=== PATIENT | female | born 1970 | race Caucasian/White ===

== ENCOUNTER 2017-04-15 12:24 | Emergency (ER) | payer MEDICARE, OTHER ==
[~2017-04-15] VITALS: Ht 165.1 cm; Wt 68.0 kg
[~2017-04-15 12:24] MED LIST: ACETAMINOPHEN500 MG PO; ALBU.083IS IH; ALBU90OI; ALBU90OI INH; ALBU90OI6 INH; AMIT50 PO; AMPDEX10 PO; AMPDEX15CR; BECL80OI INH; BENZ100A PO; BUPR100; CEFT400 PO; CIPR500 PO; CLIN300 PO; CLON.5; CLON.5 PO; CYCL10; CYCL10 PO; Cipro500 MG PO; DEXL60CA3 PO; DIPH50; DIPH50 PO; DOC250 PO; DOXY100 PO; EPIN.3I IM; ERYT250 PO; ERYT333ERA PO; ESCI10; FLUSAL2505 IH; Flagyl500 MG PO; GABA100 PO; GABA300T24 PO; HYDACE5 PO; HYDACE7.5 PO; IBUHYD PO; IBUP400 PO; IBUP800 PO; IPRAOI; ISODIN20; ISODIN20 PO; LAMO100; LEVFLO500; LEVFLO500 PO; LOXA10; METR500; MIRT15 PO; NAPR220 PO; NITR.4SL; NITR.4SL SL; NITR100CA PO; OXYACE5T PO; OXYC5; OXYC5 PO; PERP8 PO; PRED20 PO; PROC10 PO; PROM25 PO; QUET300; RISP1 PO; RISP2; RXOXYACE PO; RXTRAM50 PO; STEROID INHALER; SULTRIDS PO; TOBR.3OPSO OP; TRAM50 PO; TRAZ50; Ultram50 MG PO; WELLBUTRIN; ZIPR20 PO
[2017-04-15 14:45] LABS: BASOPHILS ABSOLUTE AUTO 0.02 K/mm3 (0.00-0.23); BASOPHILS PERCENT AUTO 0 % (0-2); EOSINOPHILS ABSOLUTE AUTO 0.01 K/mm3 (0.00-0.68); EOSINOPHILS PERCENT AUTO 0 % (0-6); Hematocrit 45.6 % (33.0-51.0); Hemoglobin 15.6 g/dL (11.5-16.0); IMMATURE GRAN ABSOLUTE AUTO 0.03 K/mm3 (0.00-0.10); IMMATURE GRAN PERCENT AUTO 0 % (0-1); LYMPHOCYTES ABSOLUTE AUTO 0.24 K/mm3 (0.84-5.20); LYMPHOCYTES PERCENT AUTO 2 % (21-46); MONOCYTES ABSOLUTE AUTO 0.41 K/mm3 (0.16-1.47); MONOCYTES PERCENT AUTO 4 % (4-13); Mean Corpuscular HGB 31.8 pg (26.0-34.0); Mean Corpuscular HGB Conc 34.2 g/dL (31.5-36.5); Mean Corpuscular Volume 93 fL (80-100); Mean Platelet Volume 9.4 fL (9.1-12.4); NEUTROPHILS ABSOLUTE AUTO 10.42 K/mm3 (1.96-9.15); NEUTROPHILS PERCENT AUTO 94 % (41-73); Platelet Count 307 K/mm3 (150-400); RDW Coefficient Variation 12.8 % (11.7-14.2); RDW Standard Deviation 43.3 fL (35.1-46.3); Red Blood Cell Count 4.91 M/mm3 (3.80-5.20); White Blood Cell Count 11.13 K/mm3 (4.00-11.30)
[2017-04-15 15:03] LABS: Alanine Aminotransfer (ALT/SGP 35 U/L (12-78); Albumin, Blood 3.8 g/dL (3.4-5.0); Albumin/Globulin Ratio 1.1 (0.8-1.8); Alk Phos 121 U/L (50-136); Anion Gap 8 mmol/L (6-16); Aspartate Aminotrans (AST/SGOT 24 U/L (12-37); Bilirubin, Total 0.6 mg/dL (0.1-1.0); Blood Urea Nitrogen 19 mg/dL (8-24); Bun/Creatinine Ratio 28.5 (12.0-20.0); CO2, Blood 26 mmol/L (21-32); Calcium, Blood 8.3 mg/dL (8.5-10.1); Chloride, Blood 102 mmol/L (98-108); Creatinine, Blood 0.67 mg/dL (0.40-1.00); Globulin, Blood 3.5 g/dL (2.2-4.0); Glomerular Filtration Rate >60 (60-); Glucose, Blood 110 mg/dL (70-99); Potassium, Blood 3.9 mmol/L (3.5-5.5); Sodium, Blood 136 mmol/L (136-145); Total Protein, Blood 7.3 g/dL (6.4-8.2)
[2017-04-15] MEDS ORDERED: NITR.6SL (15:30)
[2017-04-15] MEDS ORDERED: PERP2 (15:30)
[2017-04-15 16:56] LABS: Troponin I <0.015 ng/mL (0.000-0.040)
[2017-04-15] MEDS ORDERED: Zofran Odt4 MG SL (18:12)
== END 2017-04-15 18:30 | disposition home or self-care (01) ==
LOC: ER 12:24
PROVIDERS: Internal Medicine
DX: R11.2 Nausea with vomiting, unspecified (principal); F17.200 Nicotine dependence, unspecified, uncomplicated; Z88.0 Allergy status to penicillin; Z88.1 Allergy status to other antibiotic agents; Z79.899 Other long term (current) drug therapy; Z90.49 Acquired absence of other specified parts of digestive tract
CPT/HCPCS: 36415; 71020; 80053; 83690; 84484; 85025; 93005; 93010; 99283; J1885; J2405; J7030

== ENCOUNTER → 2017-07-24 | Outpatient (CLI) | payer MEDICARE, OTHER ==
[~2017-07-24] MED LIST changes: +NITR.6SL; +PERP2; +Zofran Odt4 MG SL
== END ==
LOC: LAB 15:15 → LAB SHORT 15:15
DX: N39.0 Urinary tract infection, site not specified (principal)
CPT/HCPCS: 87077; 87086; 87186

== ENCOUNTER 2017-08-01 16:41 | Emergency (ER) | payer MEDICARE, OTHER ==
[~2017-08-01] VITALS: Ht 160 cm; Wt 65.8 kg
== END 2017-08-01 18:47 | disposition left against medical advice (07) ==
LOC: ER 16:41
DX: Z53.21 Procedure and treatment not carried out due to patient leaving prior to being seen by health care provider (principal)
CPT/HCPCS: 99281

== ENCOUNTER 2017-08-17 09:05 | Emergency (ER) | payer MEDICARE, OTHER ==
[~2017-08-17] VITALS: Ht 160 cm; Wt 68.0 kg
[2017-08-17] MEDS ORDERED: DIPH50 PO (09:42)
[2017-08-17] MEDS ORDERED: Robaxin500 MG PO (11:06)
[2017-08-17] MEDS ORDERED: IBUP800 PO (11:06)
== END 2017-08-17 11:15 | disposition home or self-care (01) ==
LOC: ER 09:05
DX: M47.892 Other spondylosis, cervical region (principal); M50.30 Other cervical disc degeneration, unspecified cervical region; M25.531 Pain in right wrist; F17.210 Nicotine dependence, cigarettes, uncomplicated; Z88.0 Allergy status to penicillin; Z88.1 Allergy status to other antibiotic agents; Z79.899 Other long term (current) drug therapy
CPT/HCPCS: 72040; 73110

== ENCOUNTER 2017-08-23 01:24 | Emergency (ER) | payer MEDICARE, OTHER ==
[~2017-08-23] VITALS: Ht 165.1 cm; Wt 68.0 kg
[~2017-08-23 01:24] MED LIST changes: +Robaxin500 MG PO
[2017-08-23] MEDS ORDERED: Bactrim Ds Tab1 EACH PO (02:49)
[2017-08-23] MEDS ORDERED: IBUP600 PO (02:50)
== END 2017-08-23 03:41 | disposition home or self-care (01) ==
LOC: ER 01:24
DX: S61.213A Laceration without foreign body of left middle finger without damage to nail, initial encounter (principal); Z88.0 Allergy status to penicillin; Z88.1 Allergy status to other antibiotic agents; Z79.899 Other long term (current) drug therapy; F17.210 Nicotine dependence, cigarettes, uncomplicated; W25.XXXA Contact with sharp glass, initial encounter
CPT/HCPCS: 90471; 90714; 99283

== ENCOUNTER 2017-08-28 03:29 | Emergency (ER) | payer MEDICARE, OTHER ==
[~2017-08-28] VITALS: Ht 165.1 cm; Wt 68.0 kg
[~2017-08-28 03:29] MED LIST changes: +Bactrim Ds Tab1 EACH PO; +IBUP600 PO
[2017-08-28] MEDS ORDERED: Bactrim Ds Tab1 EACH PO (04:52)
== END 2017-08-28 05:03 | disposition home or self-care (01) ==
LOC: ER 03:29
DX: S91.311A Laceration without foreign body, right foot, initial encounter (principal); S61.303A Unspecified open wound of left middle finger with damage to nail, initial encounter; F17.210 Nicotine dependence, cigarettes, uncomplicated; Z88.0 Allergy status to penicillin; Z88.1 Allergy status to other antibiotic agents; Z79.899 Other long term (current) drug therapy; W25.XXXA Contact with sharp glass, initial encounter
CPT/HCPCS: 73630

== ENCOUNTER → 2017-09-10 | Outpatient (CLI) | payer MEDICARE, OTHER | END | disposition home or self-care (01) | LOC: LAB SHORT 11:52 → LAB EV 11:52 | DX: S91.311A Laceration without foreign body, right foot, initial encounter (principal) | CPT/HCPCS: 87070; 87075; 87077; 87186; 87205 ==

== ENCOUNTER → 2017-09-26 | Outpatient (CLI) | payer MEDICARE, OTHER | LOC: LAB 12:45 → LAB SHORT 12:45 | DX: N39.0 Urinary tract infection, site not specified (principal) | CPT/HCPCS: 87077; 87086; 87186 ==

== ENCOUNTER 2018-04-17 18:11 | Emergency (ER) | payer MEDICARE, OTHER ==
[~2018-04-17] VITALS: Ht 162.6 cm; Wt 61.2 kg
== END 2018-04-17 20:57 | disposition home or self-care (01) ==
LOC: ER 18:11
DX: M25.511 Pain in right shoulder (principal); M79.641 Pain in right hand; Z88.0 Allergy status to penicillin; Z88.8 Allergy status to other drugs, medicaments and biological substances; Z88.5 Allergy status to narcotic agent; Z88.1 Allergy status to other antibiotic agents; Z79.899 Other long term (current) drug therapy; F17.210 Nicotine dependence, cigarettes, uncomplicated; W19.XXXA Unspecified fall, initial encounter
CPT/HCPCS: 29125; 73030; 73130; 99283-25

== ENCOUNTER 2018-04-24 22:06 | Emergency (ER) | payer MEDICARE, OTHER ==
[~2018-04-24] VITALS: Ht 165.1 cm; Wt 56.7 kg
[2018-04-24 23:02] LABS: BASOPHILS ABSOLUTE AUTO 0.03 K/mm3 (0.00-0.23); BASOPHILS PERCENT AUTO 0 % (0-2); EOSINOPHILS ABSOLUTE AUTO 0.05 K/mm3 (0.00-0.68); EOSINOPHILS PERCENT AUTO 1 % (0-6); Hematocrit 36.7 % (33.0-51.0); Hemoglobin 12.1 g/dL (11.5-16.0); IMMATURE GRAN ABSOLUTE AUTO 0.02 K/mm3 (0.00-0.10); IMMATURE GRAN PERCENT AUTO 0 % (0-1); LYMPHOCYTES PERCENT AUTO 21 % (21-46); MONOCYTES ABSOLUTE AUTO 0.65 K/mm3 (0.16-1.47); MONOCYTES PERCENT AUTO 8 % (4-13); Mean Corpuscular HGB 31.2 pg (26.0-34.0); Mean Corpuscular Volume 95 fL (80-100); Mean Platelet Volume 9.2 fL (9.1-12.4); NEUTROPHILS PERCENT AUTO 70 % (41-73); Platelet Count 320 K/mm3 (150-400); RDW Standard Deviation 45.1 fL (35.1-46.3); Red Blood Cell Count 3.88 M/mm3 (3.80-5.20); White Blood Cell Count 8.55 K/mm3 (4.00-11.30)
[2018-04-24 23:25] LABS: Alanine Aminotransfer (ALT/SGP 41 U/L (12-78); Albumin, Blood 3.6 g/dL (3.4-5.0); Albumin/Globulin Ratio 0.9 (0.8-1.8); Alk Phos 127 U/L (50-136); Anion Gap 6 mmol/L (6-16); Aspartate Aminotrans (AST/SGOT 33 U/L (12-37); Bilirubin, Total 0.3 mg/dL (0.1-1.0); Blood Urea Nitrogen 15 mg/dL (8-24); CO2, Blood 28 mmol/L (21-32); Calcium, Blood 8.9 mg/dL (8.5-10.1); Chloride, Blood 104 mmol/L (98-108); Creatinine, Blood 0.75 mg/dL (0.40-1.00); Globulin, Blood 4.1 g/dL (2.2-4.0); Glomerular Filtration Rate >60 (60-); Glucose, Blood 94 mg/dL (70-99); Potassium, Blood 3.6 mmol/L (3.5-5.5); Sodium, Blood 138 mmol/L (136-145); Total Protein, Blood 7.7 g/dL (6.4-8.2); Troponin I <0.015 ng/mL (0.000-0.040)
[2018-04-24] MEDS ORDERED: ALBU3IS (23:36)
[2018-04-24] MEDS ORDERED: ALBU3IS INH (23:37)
[2018-04-24] MEDS ORDERED: Ultram50 MG PO (23:46)
[2018-04-24] MEDS ORDERED: Zithromax250 MG PO (23:46)
== END 2018-04-25 00:12 | disposition home or self-care (01) ==
LOC: ER 22:06
PROVIDERS: Emergency Medicine
DX: J18.1 Lobar pneumonia, unspecified organism (principal); Z88.0 Allergy status to penicillin; Z88.8 Allergy status to other drugs, medicaments and biological substances; Z88.5 Allergy status to narcotic agent; Z79.899 Other long term (current) drug therapy; Z88.1 Allergy status to other antibiotic agents; J44.9 Chronic obstructive pulmonary disease, unspecified
CPT/HCPCS: 71046; 80053; 83880; 84484; 85025; 93005; 93010; 96374; 99284-25; J1885

== ENCOUNTER 2018-12-11 19:02 | Emergency (ER) | payer MEDICARE, OTHER ==
[~2018-12-11] VITALS: Ht 165.1 cm; Wt 65.8 kg
[~2018-12-11 19:02] MED LIST changes: +ALBU3IS; +ALBU3IS INH; +Zithromax250 MG PO
[2018-12-11] MEDS ORDERED: Monodox100 MG PO (19:43)
== END 2018-12-11 19:50 | disposition home or self-care (01) ==
LOC: ER 19:02
DX: L02.414 Cutaneous abscess of left upper limb (principal); Z88.0 Allergy status to penicillin; Z88.8 Allergy status to other drugs, medicaments and biological substances; Z88.5 Allergy status to narcotic agent; Z88.1 Allergy status to other antibiotic agents; Z79.899 Other long term (current) drug therapy; J44.9 Chronic obstructive pulmonary disease, unspecified; F17.210 Nicotine dependence, cigarettes, uncomplicated
CPT/HCPCS: 99283

== ENCOUNTER 2019-01-06 10:52 | Emergency (ER) | payer MEDICARE, OTHER ==
[~2019-01-06] VITALS: Ht 162.6 cm; Wt 56.7 kg
[~2019-01-06 10:52] MED LIST changes: +Monodox100 MG PO
[2019-01-06 11:28] LABS: BASOPHILS ABSOLUTE AUTO 0.06 K/mm3 (0.00-0.23); BASOPHILS PERCENT AUTO 0 % (0-2); EOSINOPHILS PERCENT AUTO 1 % (0-6); Hematocrit 48.6 % (33.0-51.0); Hemoglobin 16.3 g/dL (11.5-16.0); IMMATURE GRAN ABSOLUTE AUTO 0.04 K/mm3 (0.00-0.10); IMMATURE GRAN PERCENT AUTO 0 % (0-1); LYMPHOCYTES ABSOLUTE AUTO 1.38 K/mm3 (0.84-5.20); LYMPHOCYTES PERCENT AUTO 10 % (21-46); MONOCYTES ABSOLUTE AUTO 0.67 K/mm3 (0.16-1.47); MONOCYTES PERCENT AUTO 5 % (4-13); Mean Corpuscular HGB 31.5 pg (26.0-34.0); Mean Corpuscular HGB Conc 33.5 g/dL (31.5-36.5); Mean Corpuscular Volume 94 fL (80-100); Mean Platelet Volume 9.3 fL (9.1-12.4); NEUTROPHILS ABSOLUTE AUTO 11.09 K/mm3 (1.96-9.15); NEUTROPHILS PERCENT AUTO 83 % (41-73); Platelet Count 321 K/mm3 (150-400); RDW Coefficient Variation 12.5 % (11.7-14.2); RDW Standard Deviation 43.3 fL (35.1-46.3); Red Blood Cell Count 5.17 M/mm3 (3.80-5.20); White Blood Cell Count 13.34 K/mm3 (4.00-11.30)
[2019-01-06 11:49] LABS: Alanine Aminotransfer (ALT/SGP 211 U/L (12-78); Albumin, Blood 4.5 g/dL (3.4-5.0); Alk Phos 155 U/L (50-136); Anion Gap 5 mmol/L (6-16); Aspartate Aminotrans (AST/SGOT 214 U/L (12-37); Bilirubin, Total 0.3 mg/dL (0.1-1.0); Blood Urea Nitrogen 23 mg/dL (8-24); Bun/Creatinine Ratio 32.3 (12.0-20.0); CO2, Blood 26 mmol/L (21-32); Calcium, Blood 9.2 mg/dL (8.5-10.1); Chloride, Blood 107 mmol/L (98-108); Creatinine, Blood 0.71 mg/dL (0.40-1.00); Globulin, Blood 4.4 g/dL (2.2-4.0); Glomerular Filtration Rate >60 (60-); Glucose, Blood 111 mg/dL (70-99); Potassium, Blood 4.3 mmol/L (3.5-5.5); Sodium, Blood 138 mmol/L (136-145); Total Protein, Blood 8.9 g/dL (6.4-8.2)
[2019-01-06 12:32] LABS: Source, Urine Clean Catch
[2019-01-06 12:37] LABS: Bilirubin, Urine Neg (Neg); Blood, Urine 2+ (Neg); Glucose Qualitative, Urine Neg (Neg); Ketones, Urine Neg (Neg); Leukocyte Esterase, Urine 1+ (Neg); Nitrite, Urine Pos (Neg); Protein, Urine Neg (Neg); Specific Gravity, Urine 1.025 (1.003-1.022); Urobilinogen, Urine NORM (Normal)
[2019-01-06 12:46] LABS: Appearance, Urine Clear (Clear); Color, Urine Yellow (P-Yellow)
[2019-01-06 12:48] LABS: Bacteria Many /hpf; Squamous Epithelial Cells Few /hpf (Few)
[2019-01-06 12:56] LABS: U Amphetamine Screen DETECTED; U Barbituate Screen Not Detected; U Benzodiazapine Screen Not Detected; U Buprenorphine Screen Not Detected; U Cannabinoids Screen Not Detected; U Cocaine Screen Not Detected; U Methadone Screen Not Detected; U Methamphetamine Screen DETECTED; U Opiates Screen Not Detected; U Oxycodone Screen Not Detected; U Phencyclidine Screen Not Detected; U Propoxyphene Screen Not Detected
[2019-01-06] MEDS ORDERED: Macrodantin100 MG PO (13:25)
== END 2019-01-06 13:31 | disposition home or self-care (01) ==
LOC: ER 10:52
PROVIDERS: Emergency Medicine; Physician Assistant
DX: N39.0 Urinary tract infection, site not specified (principal); F15.10 Other stimulant abuse, uncomplicated; F41.9 Anxiety disorder, unspecified; F20.9 Schizophrenia, unspecified; F43.10 Post-traumatic stress disorder, unspecified; D72.829 Elevated white blood cell count, unspecified; J45.909 Unspecified asthma, uncomplicated; J43.9 Emphysema, unspecified; F17.210 Nicotine dependence, cigarettes, uncomplicated; Z86.73 Personal history of transient ischemic attack (TIA), and cerebral infarction without residual deficits; Z88.0 Allergy status to penicillin; Z88.1 Allergy status to other antibiotic agents; Z88.5 Allergy status to narcotic agent; Z79.899 Other long term (current) drug therapy; Z79.891 Long term (current) use of opiate analgesic
CPT/HCPCS: 36415; 76705; 80053; 81001; 83690; 84703; 85025; 87077; 87086; 87186; 96361; 96374; 99284-25; J2405; J7030

== ENCOUNTER 2019-07-11 02:18 | Emergency (ER) | payer MEDICARE, OTHER ==
[~2019-07-11] VITALS: Ht 165.1 cm; Wt 58.1 kg
[~2019-07-11 02:18] MED LIST changes: +Macrodantin100 MG PO
[2019-07-11 03:53] LABS: BASOPHILS ABSOLUTE AUTO 0.04 K/mm3 (0.00-0.23); BASOPHILS PERCENT AUTO 0 % (0-2); EOSINOPHILS PERCENT AUTO 0 % (0-6); Hematocrit 40.2 % (33.0-51.0); Hemoglobin 13.6 g/dL (11.5-16.0); IMMATURE GRAN ABSOLUTE AUTO 0.13 K/mm3 (0.00-0.10); IMMATURE GRAN PERCENT AUTO 1 % (0-1); LYMPHOCYTES ABSOLUTE AUTO 0.55 K/mm3 (0.84-5.20); LYMPHOCYTES PERCENT AUTO 3 % (21-46); MONOCYTES ABSOLUTE AUTO 0.86 K/mm3 (0.16-1.47); MONOCYTES PERCENT AUTO 5 % (4-13); Mean Corpuscular HGB Conc 33.8 g/dL (31.5-36.5); Mean Corpuscular Volume 95 fL (80-100); NEUTROPHILS ABSOLUTE AUTO 15.31 K/mm3 (1.96-9.15); NEUTROPHILS PERCENT AUTO 91 % (41-73); RDW Coefficient Variation 12.5 % (11.7-14.2); RDW Standard Deviation 43.5 fL (35.1-46.3); Red Blood Cell Count 4.25 M/mm3 (3.80-5.20); White Blood Cell Count 16.89 K/mm3 (4.00-11.30)
[2019-07-11 03:56] LABS: Mean Platelet Volume 9.3 fL (9.1-12.4); Platelet Count 269 K/mm3 (150-400)
[2019-07-11 04:04] LABS: Alanine Aminotransfer (ALT/SGP 44 U/L (12-78); Albumin, Blood 3.7 g/dL (3.4-5.0); Albumin/Globulin Ratio 1.1 (0.8-1.8); Alk Phos 107 U/L (50-136); Anion Gap 8 mmol/L (6-16); Aspartate Aminotrans (AST/SGOT 67 U/L (12-37); Bilirubin, Total 0.2 mg/dL (0.1-1.0); Blood Urea Nitrogen 18 mg/dL (8-24); Bun/Creatinine Ratio 23.7 (12.0-20.0); CO2, Blood 25 mmol/L (21-32); Calcium, Blood 8.4 mg/dL (8.5-10.1); Chloride, Blood 105 mmol/L (98-108); Creatinine, Blood 0.76 mg/dL (0.40-1.00); Globulin, Blood 3.3 g/dL (2.2-4.0); Glomerular Filtration Rate >60 (60-); Glucose, Blood 97 mg/dL (70-99); Potassium, Blood 3.6 mmol/L (3.5-5.5); Sodium, Blood 138 mmol/L (136-145)
[2019-07-11 05:23] LABS: Source, Urine Voided
[2019-07-11 05:29] LABS: Bilirubin, Urine Neg (Neg); Blood, Urine 3+ (Neg); Glucose Qualitative, Urine Neg (Neg); Ketones, Urine Neg (Neg); Leukocyte Esterase, Urine 3+ (Neg); Nitrite, Urine Pos (Neg); Protein, Urine 1+ (Neg); Urobilinogen, Urine NORM (Normal)
[2019-07-11 05:52] LABS: Appearance, Urine Hazy (Clear); Bacteria Mod /hpf; Color, Urine Yellow (P-Yellow); Squamous Epithelial Cells Mod /hpf (Few)
[2019-07-11] MEDS ORDERED: Bactrim Ds Tab1 EACH PO (06:09)
[2019-07-11] MEDS ORDERED: IBUP600 PO (06:09)
== END 2019-07-11 07:00 | disposition home or self-care (01) ==
LOC: ER 02:18
PROVIDERS: Emergency Medicine
DX: J18.9 Pneumonia, unspecified organism (principal); N39.0 Urinary tract infection, site not specified; F41.9 Anxiety disorder, unspecified; J43.9 Emphysema, unspecified; F17.210 Nicotine dependence, cigarettes, uncomplicated; Z88.0 Allergy status to penicillin; Z88.5 Allergy status to narcotic agent; Z79.899 Other long term (current) drug therapy
CPT/HCPCS: 71045; 73030; 80053; 81001; 85025; 87077; 87086; 87186; 93005; 93010; 99284-25; A9270-GY

== ENCOUNTER 2020-07-19 22:50 | Emergency (ER) | payer MEDICARE, OTHER ==
[~2020-07-19] VITALS: Ht 162.6 cm; Wt 59.0 kg
[2020-07-20 00:02] LABS: BASOPHILS ABSOLUTE AUTO 0.04 K/mm3 (0.00-0.23); BASOPHILS PERCENT AUTO 1 % (0-2); EOSINOPHILS ABSOLUTE AUTO 0.15 K/mm3 (0.00-0.68); EOSINOPHILS PERCENT AUTO 2 % (0-6); Hematocrit 49.3 % (33.0-51.0); Hemoglobin 16.2 g/dL (11.5-16.0); IMMATURE GRAN ABSOLUTE AUTO 0.02 K/mm3 (0.00-0.10); IMMATURE GRAN PERCENT AUTO 0 % (0-1); LYMPHOCYTES ABSOLUTE AUTO 2.07 K/mm3 (0.84-5.20); LYMPHOCYTES PERCENT AUTO 24 % (21-46); MONOCYTES ABSOLUTE AUTO 0.69 K/mm3 (0.16-1.47); MONOCYTES PERCENT AUTO 8 % (4-13); Mean Corpuscular HGB 31.3 pg (26.0-34.0); Mean Corpuscular HGB Conc 32.9 g/dL (31.5-36.5); Mean Corpuscular Volume 95 fL (80-100); Mean Platelet Volume 9.3 fL (9.1-12.4); NEUTROPHILS ABSOLUTE AUTO 5.68 K/mm3 (1.96-9.15); NEUTROPHILS PERCENT AUTO 66 % (41-73); Platelet Count 267 K/mm3 (150-400); RDW Coefficient Variation 12.7 % (11.7-14.2); Red Blood Cell Count 5.17 M/mm3 (3.80-5.20); White Blood Cell Count 8.65 K/mm3 (4.00-11.30)
[2020-07-20 00:28] LABS: Alanine Aminotransfer (ALT/SGP 38 U/L (12-78); Albumin, Blood 3.9 g/dL (3.4-5.0); Alk Phos 112 U/L (50-136); Anion Gap 3 mmol/L (6-16); Aspartate Aminotrans (AST/SGOT 27 U/L (12-37); Bilirubin, Total 0.1 mg/dL (0.1-1.0); Blood Urea Nitrogen 13 mg/dL (8-24); Bun/Creatinine Ratio 13.8 (12.0-20.0); CO2, Blood 27 mmol/L (21-32); Calcium, Blood 8.8 mg/dL (8.5-10.1); Chloride, Blood 108 mmol/L (98-108); Creatinine, Blood 0.94 mg/dL (0.40-1.00); Globulin, Blood 3.8 g/dL (2.2-4.0); Glomerular Filtration Rate >60 (60-); Glucose, Blood 97 mg/dL (70-99); Potassium, Blood 4.4 mmol/L (3.5-5.5); Sodium, Blood 138 mmol/L (136-145); Total Protein, Blood 7.7 g/dL (6.4-8.2)
[2020-07-20] MEDS ORDERED: LIDO700A20 TOP (03:48)
== END 2020-07-20 04:00 | disposition home or self-care (01) ==
LOC: ER 22:50
PROVIDERS: Physician Assistant
DX: S16.1XXA Strain of muscle, fascia and tendon at neck level, initial encounter (principal); F17.210 Nicotine dependence, cigarettes, uncomplicated; Z88.1 Allergy status to other antibiotic agents; Z88.5 Allergy status to narcotic agent; Z86.73 Personal history of transient ischemic attack (TIA), and cerebral infarction without residual deficits; W23.0XXA Caught, crushed, jammed, or pinched between moving objects, initial encounter; I25.2 Old myocardial infarction; Z87.09 Personal history of other diseases of the respiratory system; Z88.0 Allergy status to penicillin; J43.9 Emphysema, unspecified
CPT/HCPCS: 36415; 72040; 80053; 85025; 96374; 99283-25; A9270; J1885

== ENCOUNTER → 2021-03-30 | Outpatient (CLI) | payer MEDICARE, OTHER ==
[~2021-03-30] MED LIST changes: +LIDO700A20 TOP
== END | disposition home or self-care (01) ==
LOC: LAB SHORT 18:15 → LAB 18:15
DX: N12 Tubulo-interstitial nephritis, not specified as acute or chronic (principal)
CPT/HCPCS: 87077; 87086; 87186

== ENCOUNTER 2021-05-13 09:17 | Inpatient (IN) | payer OTHER ==
[~2021-05-13] VITALS: Ht 162.6 cm; Wt 62.3 kg
[2021-05-13 10:52] LABS: Alanine Aminotransfer (ALT/SGP 83 U/L (12-78); Albumin/Globulin Ratio 0.9 (0.8-1.8); Alk Phos 142 U/L (50-136); Anion Gap 6 mmol/L (6-16); Aspartate Aminotrans (AST/SGOT 129 U/L (12-37); Bilirubin, Total 0.7 mg/dL (0.1-1.0); Blood Urea Nitrogen 12 mg/dL (8-24); Bun/Creatinine Ratio 14.5 (12.0-20.0); CO2, Blood 21 mmol/L (21-32); Calcium, Blood 8.5 mg/dL (8.5-10.1); Chloride, Blood 100 mmol/L (98-108); Creatinine, Blood 0.83 mg/dL (0.40-1.00); Globulin, Blood 3.5 g/dL (2.2-4.0); Glomerular Filtration Rate >60 (60-); Glucose, Blood 112 mg/dL (70-99); Sodium, Blood 127 mmol/L (136-145); Total Protein, Blood 6.5 g/dL (6.4-8.2)
[2021-05-13 10:55] LABS: Influenza A, PCR NEGATIVE (NEGATIVE); Influenza B, PCR NEGATIVE (NEGATIVE); Resp Syncytial Virus, PCR NEGATIVE (NEGATIVE); SARS-Cov-2 (COVID-19) PCR, MMC NEGATIVE (NEGATIVE)
[2021-05-13 11:06] LABS: BASOPHILS ABSOLUTE AUTO 0.04 K/mm3 (0.00-0.23); BASOPHILS PERCENT AUTO 0 % (0-2); EOSINOPHILS PERCENT AUTO 0 % (0-6); Hematocrit 35.3 % (33.0-51.0); Hemoglobin 12.3 g/dL (11.5-16.0); IMMATURE GRAN ABSOLUTE AUTO 0.13 K/mm3 (0.00-0.10); IMMATURE GRAN PERCENT AUTO 1 % (0-1); LYMPHOCYTES ABSOLUTE AUTO 0.77 K/mm3 (0.84-5.20); LYMPHOCYTES PERCENT AUTO 5 % (21-46); MONOCYTES ABSOLUTE AUTO 1.11 K/mm3 (0.16-1.47); MONOCYTES PERCENT AUTO 7 % (4-13); Mean Corpuscular HGB 31.3 pg (26.0-34.0); Mean Corpuscular HGB Conc 34.8 g/dL (31.5-36.5); Mean Corpuscular Volume 90 fL (80-100); Mean Platelet Volume 9.1 fL (9.1-12.4); NEUTROPHILS ABSOLUTE AUTO 14.69 K/mm3 (1.96-9.15); NEUTROPHILS PERCENT AUTO 88 % (41-73); Platelet Count 240 K/mm3 (150-400); RDW Coefficient Variation 12.8 % (11.7-14.2); RDW Standard Deviation 42.5 fL (35.1-46.3); Red Blood Cell Count 3.93 M/mm3 (3.80-5.20); White Blood Cell Count 16.74 K/mm3 (4.00-11.30)
[2021-05-13 19:01] LABS: Source, Urine Foley catheter
[2021-05-13 19:15] LABS: Bilirubin, Urine Neg (Neg); Blood, Urine 3+ (Neg); Color, Urine Yellow (P-Yellow); Glucose Qualitative, Urine Neg (Neg); Ketones, Urine 1+ (Neg); Leukocyte Esterase, Urine 1+ (Neg); Nitrite, Urine Neg (Neg); Protein, Urine 2+ (Neg); Urobilinogen, Urine 1+ (Normal)
--- NOTE | 2021-05-13 19:15 | NUR ---
NEW ADMIT 1749: A0X4, COMPLAINS OF PAIN 8/10 NECK R CHEST, FOLLOW COMMANDS, SOMNOLENT, SR 80S, +2 PULSES, BP WNL ON LEVO 18 TO 12 TITRATED DOWN, 1L LR COMPLETED, 100ML/HR LR STARTED, RA TO 2L NC WHEN SLEEPING, LUNGS CLEAR/DIM SOME COARSNESS UPPER CAGLE, ABDOMEN NON TENDER AUDIBLE BOWELS, LBM 05/12, LEDESMA BELA OUTPUT URINE SAMPLE SENT.
[2021-05-13 19:26] LABS: Appearance, Urine Hazy (Clear)
[2021-05-13 19:28] LABS: Bacteria Many /hpf
[2021-05-13 19:30] LABS: Red Blood Cells, Urine 0-2 /hpf (0-2); Squamous Epithelial Cells Rare /hpf (Few)
[2021-05-13 19:33] LABS: Renal Epithelial Rare /hpf (0-Rare)
[2021-05-13 19:48] LABS: U Amphetamine Screen DETECTED; U Barbituate Screen Not Detected; U Benzodiazapine Screen Not Detected; U Buprenorphine Screen Not Detected; U Cannabinoids Screen Not Detected; U Cocaine Screen Not Detected; U Methadone Screen Not Detected; U Methamphetamine Screen DETECTED; U Opiates Screen DETECTED; U Oxycodone Screen Not Detected; U Phencyclidine Screen Not Detected; U Propoxyphene Screen Not Detected
--- NOTE | 2021-05-13 20:00 | NUR ---
ASSUMED CARE RECEIVED REPORT FROM DANIEL SALMON AT 1900. PT IS A/O X4, SOMNOLENT AND SLOW TO RESPOND. SHE IS ABLE TO EXPRESS NEEDS WELL AND USES CALL LIGHT APPROPRIATELY. LUNGS ARE CLEAR IN UPPERS, DIMINISHED IN RIGHT BASE > LEFT BASE. SHE IS HOLDING HER RIGHT SIDE OF CHEST, BUT DENIES PAIN WHEN ASKED. ON ROOM AIR, SPO2 >92%. HR IS SINUS RHYTHM, RATE IN 60-70'S. LEVOPHED AT 12MCG/MIN, BP STABLE WITH MAP >65. PERIPHERAL PULSES ARE STRONG, CAP REFILL <3 SEC. SHE REQUESTED A SANDWICH AND OTHER SNACKS AND ATE 100%, DENIES NAUSEA. STATES "IF SHE DOESN'T EAT EVERY COUPLE HOURS, SHE GETS SICK. SHE HAS A TEMP LEDESMA, PATENT DRAINING YELLOW URINE. RIGHT FEMORAL CENTRAL LINE IN PLACE, INFUSING WITH LEVO AND LR AT 100ML/HR. ORDERS REVIEWED, WILL TREAT PRESCRIBED.
[2021-05-14 03:34] LABS: Hematocrit 36.8 % (33.0-51.0); Hemoglobin 12.4 g/dL (11.5-16.0); Mean Corpuscular HGB Conc 33.7 g/dL (31.5-36.5); Mean Corpuscular Volume 92 fL (80-100); Mean Platelet Volume 9.3 fL (9.1-12.4); Platelet Count 289 K/mm3 (150-400); RDW Coefficient Variation 12.9 % (11.7-14.2); RDW Standard Deviation 43.6 fL (35.1-46.3); White Blood Cell Count 21.88 K/mm3 (4.00-11.30)
[2021-05-14 03:55] LABS: Albumin, Blood 2.4 g/dL (3.4-5.0); Albumin/Globulin Ratio 0.7 (0.8-1.8); Bilirubin, Total 0.6 mg/dL (0.1-1.0); Bun/Creatinine Ratio 17.3 (12.0-20.0); Calcium, Blood 8.3 mg/dL (8.5-10.1); Creatinine, Blood 0.98 mg/dL (0.40-1.00); Globulin, Blood 3.6 g/dL (2.2-4.0); Magnesium, Blood 1.8 mg/dL (1.6-2.4)
[2021-05-14 03:58] LABS: BAND PERCENT MAN 25 % (0-8); BASOPHILS PERCENT MAN 0 % (0-2); EOSINOPHILS PERCENT MAN 0 % (0-6); LYMPHOCYTES ABSOLUTE MAN 0.65 K/mm3 (0.84-5.20); LYMPHOCYTES PERCENT MAN 3 % (21-46); METAMYELOCYTE ABSOLUTE MAN 0.65 K/mm3 (0.00-0.00); METAMYELOCYTE PERCENT MAN 3 % (0-0); MONOCYTES ABSOLUTE MAN 2.18 K/mm3 (0.16-1.47); MONOCYTES PERCENT MAN 10 % (4-13); NEUTROPHILS ABSOLUTE MAN 18.37 K/mm3 (1.96-9.15); SEG NEUTROPHILS PERCENT MAN 59 % (41-73); TOTAL CELLS COUNTED 100
--- NOTE | 2021-05-14 05:54 | NUR ---
SHIFT SUMMARY PT SLEPT WELL MOST OF SHIFT. HOWEVER, SHE DID HAVE A FEW EPISODES OF INCREASED ANXIETY AND AGITATION, ESPECIALLY REGARDING HER PERSONAL BELONGINGS. ATIVAN GIVEN X1 PER EMAR AND PT RESPONDED VERY WELL. SHE REPORTS PAIN IN HER RIGHT SIDE OF CHEST/LUNG AND NECK, MEDICATED WITH PRN FENTANYL PER EMAR. SHE REMAINS A/O X3-4, UNSURE OF ACTUAL DATE, AND STARTLES VERY EASILY WHILE SLEEPING. AFEBRILE. SHE CONTINUES ON ROOM AIR, SPO2 >95%, LUNGS DIMINISHED R>L. HR REMAINS SR, RATE IN 60-70'S. LEVOPHED GTT NOW AT 8MCG/MIN, BP SOMEWHAT LABILE, BUT OVERALL STABLE. PT REQUESTED SMALL SNACKS FREQUENTLY, GOOD APPETITE. LEDESMA REMAINS PATENT, 750ML DARK YELLOW URINE OUT. WILL REPORT TO ONCOMING SHIFT.
--- NOTE | 2021-05-14 09:26 | NUR ---
ASSUMED CARE OF PATIENT: AOX2 DISORIENTED TO PLACE/EVENT, SOMNOLENT BUT AT OTHER TIMES AGITATED/ANXIOUS WANTING TO PULL AT LINES, LEVOPHED CONTINUES AT 7, TOLERATING BREAKFAST, LUNGS COARSE UPPER CAGLE ON RA, BP WNL ON LEVO, +2 PULSES, KNIVES PERSONAL BELONGINGS LOCKED IN ROOM CLOSET, COMPLAINS OF PAIN 8/10 NECK/R SIDE BUT D/T SOMNOLENCE NOT CANDIDATE FOR PAIN MEDS.
--- NOTE | 2021-05-14 18:27 | NUR ---
AOX2 THIS SHIFT, DISORIENTED TO EVENT/PLACE, ATIVAN MAKING NEURO ASSESSMENT DIFFICULT, WHEN NOT SOMNOLENT AGITATED PULLING AT LINES, ATTEMPING TO GET OUT OF BED, MAKING THREATS TO LEAVE, STAFF ARE EVIL FOR NOT LETTING HER SMOKE, WAS TOLD "SHE WOULD BE LEAVING TODAY AND STAFF HAS BEEN LYING TO HER", ATIVAN 6MG GIVEN, DEX GTT INITATED CURRENTLY 0.6, BP WNL ON LEVO TITRATED DOWN TO 1, ST 100S-130S WORSE WITH AGITATION, +2 PULSES, LUNGS CLEAR/DIM SOME COARSNESS UPPER CAGLE, RA, LEDESMA ADEQUATE OUTPUT BELA, WILL CONTINUE TO MONITOR AND REPORT TO NIGHT RN.
--- NOTE | 2021-05-14 19:40 | NUR ---
PT CLIMBED OUT OF BED, SCREAMING THAT SHE NEEDS TO LEAVE. DIFFICULT TO CONSOLE AND VERY IRRATIONAL AND IMPULSIVE. PT STARTED PULLING AT LEDESMA AND CENTRAL LINE. DR. COHEN IN TO SEE PT. PRECEDEX INCREASED TO 1.4MCG/KG/HR AND 4 POINT SOFT RESTRAINTS APPLIED. BED ALARM ON. PAPER SHORTS PUT ON TO COVER LEDESMA AND CENTRAL LINE TO PREVENT PULLING.
--- NOTE | 2021-05-14 21:39 | NUR ---
SHIFT ASSESSMENT ASSUMED CARE OF PT @ 1900. PT A&O TO PERSON AND PLACE. EXTREMELY IMPULSIVE, CLIMBING OUT OF BED AND YELLING AT STAFF STATING SHE NEEDS TO LEAVE. ATTEMPTING TO PULL OUT LEDESMA AND CENTRAL LINE. PT VERY DIFFICULT TO CONSOLE. MULTIPLE NURSES/ STAFF IN ROOM WITH PT. DR COHEN IN ROOM WELL, NEW ORDERS FOR AN INCREASED PRECEDEX DOSAGE AND ONE TIME ZYPREXA. 4 POINT SOFT RESTRAINTS PLACED TO PROTECT PT FROM PULLING OUT LINES. PRECEDEX GTT NOW @ 1.4MCG/KG/HR, LEVOPHED @ 2MCG/MIN c MAP >65. TEMP PROBE LEDESMA DRAINING YELLOW URINE, TEMP OF 101.1. WILL CONTINUE TO MONITOR CLOSELY.
[2021-05-15 03:30] LABS: Hemoglobin 10.8 g/dL (11.5-16.0); Mean Corpuscular HGB 30.8 pg (26.0-34.0); Mean Corpuscular HGB Conc 33.8 g/dL (31.5-36.5); Mean Corpuscular Volume 91 fL (80-100); Mean Platelet Volume 9.5 fL (9.1-12.4); Platelet Count 254 K/mm3 (150-400); RDW Coefficient Variation 13.1 % (11.7-14.2); RDW Standard Deviation 43.5 fL (35.1-46.3); Red Blood Cell Count 3.51 M/mm3 (3.80-5.20); White Blood Cell Count 12.91 K/mm3 (4.00-11.30)
[2021-05-15 03:50] LABS: Anion Gap 4 mmol/L (6-16); Blood Urea Nitrogen 14 mg/dL (8-24); CO2, Blood 31 mmol/L (21-32); Calcium, Blood 8.4 mg/dL (8.5-10.1); Chloride, Blood 108 mmol/L (98-108); Creatinine, Blood 0.82 mg/dL (0.40-1.00); Glomerular Filtration Rate >60 (60-); Glucose, Blood 108 mg/dL (70-99); Potassium, Blood 3.9 mmol/L (3.5-5.5); Sodium, Blood 143 mmol/L (136-145)
[2021-05-15 03:55] LABS: BAND PERCENT MAN 14 % (0-8); BASOPHILS PERCENT MAN 0 % (0-2); EOSINOPHILS PERCENT MAN 0 % (0-6); LYMPHOCYTES ABSOLUTE MAN 1.03 K/mm3 (0.84-5.20); LYMPHOCYTES PERCENT MAN 8 % (21-46); MONOCYTES ABSOLUTE MAN 0.77 K/mm3 (0.16-1.47); MONOCYTES PERCENT MAN 6 % (4-13); SEG NEUTROPHILS PERCENT MAN 72 % (41-73); TOTAL CELLS COUNTED 100
[2021-05-15 03:59] LABS: Vancomycin, Trough 7.8 ug/mL (5.0-10.0)
--- NOTE | 2021-05-15 06:04 | NUR ---
SHIFT SUMMARY PT ALERT TO STIMULI, EXTREMELY IMPULSIVE AND AGITATED, PRECEDEX REMAINED ON T/O THE NIGHT. PRECEDEX CURRENTLY @ 0.8MCG/KG/HR. ATIVAN AND FENTANYL ALSO GIVEN FOR SEDATION. LEVOPHED CURRENTLY ON SB, MAP >65. PT REMAINS IN 4 POINT SOFT RESTRAINTS TO PROTECT CENTRAL LINE/ FOR PATIENT SAFETY. TEMP PROBE LEDESMA DRAINING LIGHT YELLOW URINE, AFEBRILE. NO OTHER ACUTE CHANGES THIS SHIFT, WILL CONTINUE TO MONITOR CLOSELY.
--- NOTE | 2021-05-15 10:16 | NUR ---
CARE OF PT ASSUMED AT 0700. PT SLEEPING, PRECEDEX AT 1MCG FOR AGITATION. RING REMOVED FROM LEFT POINTER FINGER, FINGER DARK RED AND VERY SWOLLEN. PT AWOKE AND STARTED SCREAMING, PULLING ON ALL 4 RESTRAINTS. PT ABLE TO STATE NAME AND THOUGHT SHE WAS IN THE ER, OTHERWISE CONFUSED AND SEVERLY AGITATED. ATIVAN 2MG GIVEN. LEVOPHED HAS BEEN OFF. DR COHEN AT BEDSIDE THIS AM, UPDATE GIVEN. PT HYPOTENSIVE W MAPS >65, VITALS OTHERWISE STABLE.
--- NOTE | 2021-05-15 17:28 | NUR ---
PT WOKE UP SCREAMING, YELLING AT STAFF, YELLING PROFANITIS, PULLING ON RESTRAINTS, THREATENING STAFF. SOME WORDS MUMBLED. PT CONFUSED, YELLING TO LET HER GO HOME. MOST OF THE CONVERSATION WAS INCOMPREHENSIBLE. ATIVAN 2MG GIVEN FOR SEVERE AGITAION. PRECEDEX REMAINS AT 1MCG. VS HAVE BEEN STABLE FOR ETIRE SHIFT.
--- NOTE | 2021-05-15 20:16 | NUR ---
SHIFT ASSESSMENT PT SLEEPING/SEDATED c PRECEDEX @ 1MCG/KG/HR. AWAKENS TO STIMULATION, BECOMES AGITATED QUICKLY. YELLS OUT AT STAFF, DIFFICULT TO CONSOLE. INTERMITTENTLY FOLLOWING COMMANDS. LEVOPHED REMAINS OFF. TEMP PROBE LEDESMA DRAINING CLEAR LIGHT YELLOW URINE, AFEBRILE. PT REMAINS IN 4 POINT SOFT RESTRAINTS DUE TO PULLING AT CENTRAL LINE.
--- NOTE | 2021-05-15 20:48 | NUR ---
WELLNESS CALL PT VOICED CONCERN TO DAY SHIFT NURSE REGARDING HER DOG BEING HOME WITH NO ONE TO FEED/ CARE FOR IT. THIS NURSE ATTEMPTED TO CALL FRIEND, NO ANSWER. LATISHA FERREIRA NON-EMERGENT LINE CALLED, THIS NURSE SPOKE WITH WHO STATED THEY WOULD DRIVE BY THE RESIDENCE.
[2021-05-16 04:09] LABS: BASOPHILS ABSOLUTE AUTO 0.03 K/mm3 (0.00-0.23); BASOPHILS PERCENT AUTO 0 % (0-2); EOSINOPHILS ABSOLUTE AUTO 0.17 K/mm3 (0.00-0.68); EOSINOPHILS PERCENT AUTO 3 % (0-6); Hematocrit 32.4 % (33.0-51.0); Hemoglobin 10.7 g/dL (11.5-16.0); IMMATURE GRAN ABSOLUTE AUTO 0.03 K/mm3 (0.00-0.10); IMMATURE GRAN PERCENT AUTO 0 % (0-1); LYMPHOCYTES ABSOLUTE AUTO 1.39 K/mm3 (0.84-5.20); LYMPHOCYTES PERCENT AUTO 21 % (21-46); MONOCYTES ABSOLUTE AUTO 0.44 K/mm3 (0.16-1.47); MONOCYTES PERCENT AUTO 7 % (4-13); Mean Corpuscular HGB 30.4 pg (26.0-34.0); Mean Corpuscular Volume 92 fL (80-100); Mean Platelet Volume 9.3 fL (9.1-12.4); NEUTROPHILS PERCENT AUTO 70 % (41-73); Platelet Count 261 K/mm3 (150-400); RDW Coefficient Variation 13.1 % (11.7-14.2); RDW Standard Deviation 44.2 fL (35.1-46.3); Red Blood Cell Count 3.52 M/mm3 (3.80-5.20); White Blood Cell Count 6.76 K/mm3 (4.00-11.30)
[2021-05-16 04:39] LABS: Anion Gap 4 mmol/L (6-16); Blood Urea Nitrogen 10 mg/dL (8-24); Bun/Creatinine Ratio 13.4 (12.0-20.0); CO2, Blood 29 mmol/L (21-32); Calcium, Blood 8.4 mg/dL (8.5-10.1); Chloride, Blood 108 mmol/L (98-108); Creatinine, Blood 0.74 mg/dL (0.40-1.00); Glomerular Filtration Rate >60 (60-); Glucose, Blood 100 mg/dL (70-99); Potassium, Blood 3.8 mmol/L (3.5-5.5); Sodium, Blood 141 mmol/L (136-145)
[2021-05-16 04:51] LABS: Vancomycin, Trough 21.7 ug/mL (5.0-10.0)
--- NOTE | 2021-05-16 06:09 | NUR ---
SHIFT SUMMARY NO ACUTE CHANGES IN PT CONDITION. VSS T/O THE NIGHT. CONTINUES TO HAVE RANDOM OUTBURSTS OF AGITATION, TREATED c PRN ATIVAN & FENTANYL. PRECEDEX REMAINS ON @ 1MCG. 4 POINT SOFT RESTRAINTS ON DUE TO PT PULLING AT CENTRAL LINE AND LEDESMA DURING OUTBURSTS. WILL CONTINUE TO MONITOR CLOSELY.
--- NOTE | 2021-05-16 07:44 | NUR ---
CARE ASSUMED OF PT AT 0700. PT SLEEPING, YELLING OUT IN SLEEP FOR SHRUTHI. PRECEDEX AT 1MCG. PT ABLE TO STATE HER NAME, AND POSSIBLY "[facility]CY", SPEECH IS GARBLED. PT MISTAKES IV PUMP FOR PHONE AND ASKS SOMEONE TO ANSWER IT. PT THEN BECAME SEVERELY AGITATED AND RIPPED OFF RESTRAINT, ATTEMPTED TO RIP OUT CENTRAL LINE AND LEDESMA. SEVERAL NURSES ASSISTED IN REPLACING RIGHT WRIST RESTRAINT, PT'S EYES CLOSED THE ENTIRE TIME WHILE SCREAMING THREATS AND PROFANITIES. ATIVAN 2MG GIVEN, PRECEDEX INCREASED TO 1.4MCG. DR COHEN UPDATED. SEDATION INCREASED SO CENTRAL LINE CAN BE SAFELY REMOVED. WILL START PERIPHERAL IV FIRST PRIOR TO REMOVING CL. PLAN IS TO THEN START DECREASING SEDATION. VSS. PT HAS NOT REQUIRED PRESSORS FOR OVER 24HRS.
--- NOTE | 2021-05-16 10:07 | NUR ---
PT BECAME SEVERELY AGITATED SEVERAL TIMES MORE SINCE THIS AM. HALDOL GIVEN PER DR COHEN. ABLE TO PLACE POWERGLIDE TO SÁNCHE[place] AND PERIPHERAL IV. CENTRAL LINE DC'D W/O DIFFICULTY FOLLOWING HOSPITAL POLICY AND PROCEDURE. DR VICK AND DR Fair IN TO SEE PT THIS AM, FULL UPDATE GIVEN.
--- NOTE | 2021-05-16 14:06 | NUR ---
PRECEDEX GTT PLACED ON STANDBY AT 1345. PT NOW STARTING TO WAKE UP BUT REMAINS SEDATED AND CONFUSED. STATED THAT SHE WAS IN THE HOSPITAL BUT THAT THE YEAR WAS 2022. PT UNABLE TO KEEP EYES OPEN DURING CONVERSATION, UNABLE TO RETAIN INFORMATION. ASKS OVER AND OVER TO EAT WHILE TRYIMG TO TAKE HER GOWN OFF.
--- NOTE | 2021-05-16 18:05 | NUR ---
PT WOKE UP ENOUGH AROUND 1630 TO BE FED PUDDING. SHORTLY AFTER EATING PT HAD A DIFFICULT TIME KEEPING EYES OPEN, SOME OF HER CONVERSATION REMAINED CONFUSED. PT UNABLE TO USE PHONE OR REMEMBER PHONE NUMBERS. AT 1800 PT BECAME VERY AGITATED, STARTED YELLING "GET ME OUT OF HERE, I WANT TO GO HOME", BUT UNABLE TO SIT UP WITHOUT ASSIST, AND UNABLE TO KEEP HER EYES OPEN. SHE STARTED USING PROFANITIES AND RIPPING OFF LEADS, PULLING AT IV. (PT HAD BEEN UNRESTRAINED FROM 1400 ON SHE MOSTLY SLEPT AND FELL BACK TO SLEEP QUICKLY AFTER WAKING.) AT THIS POINT PT HAD NOT RECIEVED ANY ATIVAN OR FENTANYL SINCE AROUND 0800 THIS AM, PRECEDEX HAD BEEN OFF SINCE 1345. DR COHEN AT BEDSIDE TO EVALUATE PT. IT WAS DETERMINED THAT PT REMAINED CONFUSED AND WEAK AND WHOULD NOT BE ABLE TO LEAVE D/T PT SAFETY. PT QUICKLY FELL BACK TO SLEEP. PT THEN AWOKE AGAIN AGITATED AND PULLING AT LINES. PRECEDEX RESTARTED AT 1.4MCG, ATIVAN GIVEN. FENTANYL GIVEN PT HAD ALSO BEEN YELLING THAT HER BACK HURT. SOFT WRIST RESTRAINTS PLACED AT 1800. DR COHEN TO ORDER CONSULT W DR ANAYA TOMORROW.
--- NOTE | 2021-05-16 22:44 | NUR ---
SHIFT ASSESSMENT ASSUMED CARE OF PT @ 1900. PT SUPINE IN BED, IN 4 POINT SOFT RESTRAINTS DUE TO PULLING AT LINES AND CORDS. ALERT TO PERSON, KNOWS SHE IS AT [facility]. RESPONDS INAPPROPRIATLEY TO MOST QUESTIONS, QUITE LABILE. MOVING ALL EXTREMITIES, WILL COMPLY WITH ORAL CARE. TEMP PROBE LEDESMA PATENT, AFEBRILE. AWAITING CONSULT WITH PSYCHIATRY, WILL CONTINUE TO MONITOR.
--- NOTE | 2021-05-17 00:05 | NUR ---
FRIEND/ CAREGIVER PTS LONG TIME FRIEND, IDALMIS PEOPLESRUIVE-[phone] CALLED TO INFORM STAFF OF PTS TENDENCY TO BECOME SCARED/ DEFENSIVE AT HOSPITALS DUE TO PRIOR MENTAL HEALTH ISSUES. IDALMIS STATED HE LIVES IN [place] AND IS CAPABLE OF CONSOLING PATIENT IF NEEDED. REQUESTS WE CALL HIM UPON DISCHARGE TO COME PICK HER UP.
[2021-05-17 04:03] LABS: BASOPHILS ABSOLUTE AUTO 0.04 K/mm3 (0.00-0.23); BASOPHILS PERCENT AUTO 1 % (0-2); EOSINOPHILS ABSOLUTE AUTO 0.17 K/mm3 (0.00-0.68); EOSINOPHILS PERCENT AUTO 4 % (0-6); Hematocrit 32.7 % (33.0-51.0); Hemoglobin 11.1 g/dL (11.5-16.0); IMMATURE GRAN ABSOLUTE AUTO 0.03 K/mm3 (0.00-0.10); IMMATURE GRAN PERCENT AUTO 1 % (0-1); LYMPHOCYTES ABSOLUTE AUTO 1.31 K/mm3 (0.84-5.20); LYMPHOCYTES PERCENT AUTO 31 % (21-46); MONOCYTES PERCENT AUTO 10 % (4-13); Mean Corpuscular HGB 30.6 pg (26.0-34.0); Mean Corpuscular HGB Conc 33.9 g/dL (31.5-36.5); Mean Corpuscular Volume 90 fL (80-100); Mean Platelet Volume 8.7 fL (9.1-12.4); NEUTROPHILS ABSOLUTE AUTO 2.27 K/mm3 (1.96-9.15); NEUTROPHILS PERCENT AUTO 54 % (41-73); Platelet Count 282 K/mm3 (150-400); RDW Coefficient Variation 12.8 % (11.7-14.2); RDW Standard Deviation 42.5 fL (35.1-46.3); Red Blood Cell Count 3.63 M/mm3 (3.80-5.20); White Blood Cell Count 4.22 K/mm3 (4.00-11.30)
[2021-05-17 04:26] LABS: Anion Gap 4 mmol/L (6-16); Blood Urea Nitrogen 9 mg/dL (8-24); CO2, Blood 31 mmol/L (21-32); Calcium, Blood 8.7 mg/dL (8.5-10.1); Chloride, Blood 105 mmol/L (98-108); Creatinine, Blood 0.64 mg/dL (0.40-1.00); Glomerular Filtration Rate >60 (60-); Glucose, Blood 103 mg/dL (70-99); Potassium, Blood 3.4 mmol/L (3.5-5.5); Sodium, Blood 140 mmol/L (136-145)
--- NOTE | 2021-05-17 05:57 | NUR ---
SHIFT SUMMARY PT REMAINS ALERT TO PERSON, CONTINUES TO HAVE OUTBURSTS, DIFFICULT TO UNDERSTAND. PRECEDEX CONTINUES @ 1. VSS. TEMP PROBE LEDESMA DRAINING LIGHT YELLOW URINE, AFEBRILE. MEDICATED c PRN FENTANYL. KCL INFUSING IN POWERGLIDE. NO OTHER ACUTE CHANGES DURING THE NIGHT.
--- NOTE | 2021-05-17 07:28 | NUR ---
ASSUME CARE: I assumed care of pt at 0700.
[2021-05-17 08:46] LABS: Vancomycin, Trough 14.9 ug/mL (5.0-10.0)
--- NOTE | 2021-05-17 10:23 | NUR ---
IV INFILTRATION: Vanco infiltrated in left AC. Provider notified. Pharmacy called; recommend ice packs and hydrocortizone cream as needed.
--- NOTE | 2021-05-17 13:08 | NUR ---
PHONE CALL: With pt's permission, this RN spoke to her friend, Yosi and updated him on pt status.
--- NOTE | 2021-05-17 17:50 | NUR ---
Dr. Hamilton at bedside with patient.
--- NOTE | 2021-05-17 18:28 | NUR ---
SHIFT SUMMARY: Precedex stopped this morning and pt started on PRN zyprexa. Restraintes discontinued. She has been tolerating zyprexa with PRN doses of ativan and fentanyl well. Dr. Hamilton assessed pt and changed zyprexa to seroquil. Pt sating 96% on RA. Afebrile throughout the day. She is complaining of right upper back pain, but states this is much like her chronic pain for which she takes gabapentin daily. One time dose given here in ICU. Pt's pharmacy was called by this RN; pt has not had gabapentin filled since 07/2020. Good PO intake; she ate 100% of all meals today.
[2021-05-18 04:24] LABS: BASOPHILS ABSOLUTE AUTO 0.05 K/mm3 (0.00-0.23); BASOPHILS PERCENT AUTO 1 % (0-2); EOSINOPHILS ABSOLUTE AUTO 0.22 K/mm3 (0.00-0.68); EOSINOPHILS PERCENT AUTO 3 % (0-6); Hematocrit 33.2 % (33.0-51.0); IMMATURE GRAN ABSOLUTE AUTO 0.14 K/mm3 (0.00-0.10); IMMATURE GRAN PERCENT AUTO 2 % (0-1); LYMPHOCYTES ABSOLUTE AUTO 1.66 K/mm3 (0.84-5.20); LYMPHOCYTES PERCENT AUTO 26 % (21-46); MONOCYTES ABSOLUTE AUTO 0.83 K/mm3 (0.16-1.47); MONOCYTES PERCENT AUTO 13 % (4-13); Mean Corpuscular HGB 30.4 pg (26.0-34.0); Mean Corpuscular HGB Conc 33.1 g/dL (31.5-36.5); Mean Corpuscular Volume 92 fL (80-100); Mean Platelet Volume 8.9 fL (9.1-12.4); NEUTROPHILS ABSOLUTE AUTO 3.51 K/mm3 (1.96-9.15); NEUTROPHILS PERCENT AUTO 55 % (41-73); Platelet Count 351 K/mm3 (150-400); RDW Coefficient Variation 13.2 % (11.7-14.2); RDW Standard Deviation 44.8 fL (35.1-46.3); Red Blood Cell Count 3.62 M/mm3 (3.80-5.20); White Blood Cell Count 6.41 K/mm3 (4.00-11.30)
[2021-05-18 05:56] LABS: Alanine Aminotransfer (ALT/SGP 35 U/L (12-78); Albumin, Blood 2.2 g/dL (3.4-5.0); Albumin/Globulin Ratio 0.6 (0.8-1.8); Alk Phos 130 U/L (50-136); Anion Gap 4 mmol/L (6-16); Aspartate Aminotrans (AST/SGOT 31 U/L (12-37); Bilirubin, Total 0.3 mg/dL (0.1-1.0); Blood Urea Nitrogen 17 mg/dL (8-24); Bun/Creatinine Ratio 23.4 (12.0-20.0); CO2, Blood 29 mmol/L (21-32); Calcium, Blood 8.5 mg/dL (8.5-10.1); Chloride, Blood 105 mmol/L (98-108); Creatinine, Blood 0.73 mg/dL (0.40-1.00); Globulin, Blood 3.5 g/dL (2.2-4.0); Glomerular Filtration Rate >60 (60-); Glucose, Blood 100 mg/dL (70-99); Potassium, Blood 3.9 mmol/L (3.5-5.5); Sodium, Blood 138 mmol/L (136-145); Total Protein, Blood 5.7 g/dL (6.4-8.2)
--- NOTE | 2021-05-18 06:16 | NUR ---
PT RESTS QUIETLY THROUGHOUT SHIFT, HAS REMAINED ORIENTED AND VERBALIZES NEEDS. SHE APPEARS TO SLEEP WHEN UNDISTURBED, COMPLAINS OF HIGH PAIN LEVELS "EVERYWHERE" AND FENTANYL IS REPORTED TO DECREASE PAIN. FENTANYL 50 MCG IV HAS BEEN ADMINISTERED TWICE THIS SHIFT. SHE MAINTAINS SATS THROUGHOUT NOC ON ROOM AIR, NO VISIBLE INCREASED WORK OF BREATHING THROUGHOUT NOC, OCCASIONAL COUGH IS NOTED. PRESSURES MAINTAIN THROUGHOUT NOC, CONTINUES IN SINUS RHYTHM. NO BOWEL MOVEMENT THIS SHIFT, HAS COMPLAINED OF INCREASED HUNGER AND REQUESTED MULTIPLE SNACKS WHICH WERE TOLERATED WELL. SHE DID ATTEMPT UP OOB WITHOUT CALLING FOR ASSISTANCE X 1 THIS SHIFT, BED ALARM IS ARMED AND FALL PRECAUTION INDICATOR LIGHT IS ON.
--- NOTE | 2021-05-18 17:23 | NUR ---
SHIFT SUMMARY; ASSUMED CARE AT 0700. SLEEPING BUT EASILY AWAKES TO VERBAL STIMULI. A/A/OX4 DURING SHIFT. REPOSITIONS SELF NEEDED. VSS, ANXIOUS AT TIMES. MEDICATED PER EMAR. BALTAZAR LOZADA TODAY, VOIDING IN BEDSIDE COMMODE WITHOUT DIFFICULTY. AMBULATES WITH WALKER AND STANDBY ASSIST. STATUS CHANGED TO MEDICAL TODAY, NO ACUTE MEDICAL CHANGES, WILL CONTINUE TO MONITOR AND TREAT UNTIL CHANGE OF SHIFT.
--- NOTE | 2021-05-18 18:04 | NUR ---
UP IN ROOM GETTING DRESSED. STATES GOING TO LEAVE TO GO CHECK ON HER DOG. DR. Fair AND [employer] ADMINISTRATOR NOTIFIED. SIGNS AMA FORM. AMULATES FROM UNIT WITH PERSONAL BELONGINGS. DR. Fair NOTIFIED OF PT LEAVING HOSPITAL.
== END 2021-05-18 18:00 | disposition left against medical advice (07) | DRG 871 ==
LOC: ER 09:17 → ICUW 14:43
PROVIDERS: Emergency Medicine; Family Medicine; Internal Medicine Critical Care Medicine; Nurse Practitioner Acute Care; ADMIT Internal Medicine
PROC: 3E033XZ Introduction of Vasopressor into Peripheral Vein, Percutaneous Approach (ICD-10-PCS; principal; 2021-05-13)
DX: A41.9 Sepsis, unspecified organism (principal); R65.21 Severe sepsis with septic shock; J18.9 Pneumonia, unspecified organism; F15.23 Other stimulant dependence with withdrawal; F20.9 Schizophrenia, unspecified; J44.9 Chronic obstructive pulmonary disease, unspecified; Z20.822 Contact with and (suspected) exposure to COVID-19; F43.10 Post-traumatic stress disorder, unspecified; F41.9 Anxiety disorder, unspecified; G89.29 Other chronic pain; F17.210 Nicotine dependence, cigarettes, uncomplicated; R74.01 Elevation of levels of liver transaminase levels; F11.10 Opioid abuse, uncomplicated; K72.90 Hepatic failure, unspecified without coma; R06.03 Acute respiratory distress; M54.9 Dorsalgia, unspecified; I25.2 Old myocardial infarction; Z86.73 Personal history of transient ischemic attack (TIA), and cerebral infarction without residual deficits; Z90.49 Acquired absence of other specified parts of digestive tract; Z90.89 Acquired absence of other organs; Z98.891 History of uterine scar from previous surgery; Z88.0 Allergy status to penicillin; Z88.1 Allergy status to other antibiotic agents; Z88.5 Allergy status to narcotic agent; Z79.899 Other long term (current) drug therapy
CPT/HCPCS: 0241U; 36415; 36556; 51702; 71045; 74177; 80048; 80053; 80202; 81001; 82330; 83605; 83735; 84100; 84145; 85025; 87040; 87086; 93005; 93010; 94640; 94760; 96361-59; 96365-59; 96366-59; 96368; 96372-59; 96375-59; 99285-25; A9270; C1751; J0456; J1630; J1650; J1885; J2060; J2185; J2270; J2405; J3010; J3370; J7030; J7050; J7060; J7120; Q9967

== ENCOUNTER 2021-05-21 22:33 | Observation (INO) | payer OTHER ==
[~2021-05-21] VITALS: Ht 160 cm; Wt 59.0 kg
[2021-05-22 00:48] LABS: BASOPHILS ABSOLUTE AUTO 0.08 K/mm3 (0.00-0.23); BASOPHILS PERCENT AUTO 1 % (0-2); EOSINOPHILS ABSOLUTE AUTO 0.03 K/mm3 (0.00-0.68); EOSINOPHILS PERCENT AUTO 0 % (0-6); Hematocrit 34.1 % (33.0-51.0); Hemoglobin 11.3 g/dL (11.5-16.0); IMMATURE GRAN ABSOLUTE AUTO 0.13 K/mm3 (0.00-0.10); IMMATURE GRAN PERCENT AUTO 1 % (0-1); LYMPHOCYTES ABSOLUTE AUTO 1.11 K/mm3 (0.84-5.20); LYMPHOCYTES PERCENT AUTO 7 % (21-46); MONOCYTES ABSOLUTE AUTO 0.71 K/mm3 (0.16-1.47); MONOCYTES PERCENT AUTO 5 % (4-13); Mean Corpuscular HGB 30.2 pg (26.0-34.0); Mean Corpuscular HGB Conc 33.1 g/dL (31.5-36.5); Mean Corpuscular Volume 91 fL (80-100); Mean Platelet Volume 8.7 fL (9.1-12.4); NEUTROPHILS ABSOLUTE AUTO 13.26 K/mm3 (1.96-9.15); NEUTROPHILS PERCENT AUTO 87 % (41-73); Platelet Count 611 K/mm3 (150-400); RDW Coefficient Variation 13.2 % (11.7-14.2); RDW Standard Deviation 44.1 fL (35.1-46.3); Red Blood Cell Count 3.74 M/mm3 (3.80-5.20); White Blood Cell Count 15.32 K/mm3 (4.00-11.30)
[2021-05-22 01:06] LABS: Alanine Aminotransfer (ALT/SGP 123 U/L (12-78); Albumin, Blood 3.5 g/dL (3.4-5.0); Albumin/Globulin Ratio 0.8 (0.8-1.8); Alk Phos 287 U/L (50-136); Anion Gap 7 mmol/L (6-16); Aspartate Aminotrans (AST/SGOT 96 U/L (12-37); Bilirubin, Total 0.6 mg/dL (0.1-1.0); Blood Urea Nitrogen 28 mg/dL (8-24); Bun/Creatinine Ratio 31.5 (12.0-20.0); CO2, Blood 27 mmol/L (21-32); Calcium, Blood 9.4 mg/dL (8.5-10.1); Chloride, Blood 105 mmol/L (98-108); Creatinine, Blood 0.89 mg/dL (0.40-1.00); Ethanol (Alcohol), Blood, Med <3 mg/dL; Globulin, Blood 4.2 g/dL (2.2-4.0); Glomerular Filtration Rate >60 (60-); Glucose, Blood 106 mg/dL (70-99); Salicylate <1.7 mg/dL (2.8-20.0); Sodium, Blood 139 mmol/L (136-145); Total Protein, Blood 7.7 g/dL (6.4-8.2)
[2021-05-22 01:13] LABS: Acetaminophen, Random <2.0 ug/mL (10.0-30.0)
[2021-05-22 02:20] LABS: Influenza A, PCR NEGATIVE (NEGATIVE); Influenza B, PCR NEGATIVE (NEGATIVE); Resp Syncytial Virus, PCR NEGATIVE (NEGATIVE); SARS-Cov-2 (COVID-19) PCR, MMC NEGATIVE (NEGATIVE)
[2021-05-22 04:29] LABS: Source, Urine Clean Catch
[2021-05-22 04:34] LABS: Bilirubin, Urine Neg (Neg); Blood, Urine 2+ (Neg); Glucose Qualitative, Urine Neg (Neg); Ketones, Urine 3+ (Neg); Leukocyte Esterase, Urine Neg (Neg); Nitrite, Urine Neg (Neg); Protein, Urine 1+ (Neg); Specific Gravity, Urine 1.025 (1.003-1.022); Urobilinogen, Urine NORM (Normal)
[2021-05-22 04:36] LABS: Appearance, Urine Clear (Clear); Color, Urine Yellow (P-Yellow)
[2021-05-22 04:46] LABS: Amorphous Light (0-Heavy); Bacteria Rare /hpf; Red Blood Cells, Urine 0-2 /hpf (0-2); Squamous Epithelial Cells Few /hpf (Few); Transitional Epithelial Cells Few /hpf (0-Rare); U Amphetamine Screen DETECTED; U Barbituate Screen Not Detected; U Benzodiazapine Screen Not Detected; U Buprenorphine Screen Not Detected; U Cannabinoids Screen DETECTED; U Cocaine Screen Not Detected; U Methadone Screen Not Detected; U Methamphetamine Screen DETECTED; U Opiates Screen Not Detected; U Oxycodone Screen Not Detected; U Phencyclidine Screen Not Detected; U Propoxyphene Screen Not Detected; White Blood Cells, Urine Rare /hpf (0-5)
[2021-05-23] MEDS ORDERED: NEURONTIN300 MG PO (11:42)
[2021-05-23] MEDS ORDERED: OLAN5 PO (11:42)
[2021-05-23] MEDS ORDERED: SEROQUEL25 MG PO (11:42)
== END 2021-05-23 13:49 | disposition home or self-care (01) ==
LOC: ER 22:33 → EOR 22:34
PROVIDERS: ADMIT Student in an Organized Health Care Education/Training Program
DX: F15.959 Other stimulant use, unspecified with stimulant-induced psychotic disorder, unspecified (principal); F10.929 Alcohol use, unspecified with intoxication, unspecified; S71.112A Laceration without foreign body, left thigh, initial encounter; S61.211A Laceration without foreign body of left index finger without damage to nail, initial encounter; J44.9 Chronic obstructive pulmonary disease, unspecified; F17.200 Nicotine dependence, unspecified, uncomplicated; Z20.822 Contact with and (suspected) exposure to COVID-19; R00.0 Tachycardia, unspecified; X58.XXXA Exposure to other specified factors, initial encounter; Z59.00 Homelessness unspecified; Z88.0 Allergy status to penicillin; Z88.5 Allergy status to narcotic agent; Z88.8 Allergy status to other drugs, medicaments and biological substances
CPT/HCPCS: 0241U; 12002; 51701; 80053; 81001; 81025; 85025; 90471; 90714; 93005; 93010; 96372; 99285-25; A9270; G0378; G0480; J3486

== ENCOUNTER 2021-05-28 20:50 | Emergency (ER) | payer OTHER ==
[~2021-05-28] VITALS: Ht 172.7 cm; Wt 59.0 kg
[~2021-05-28 20:50] MED LIST changes: +NEURONTIN300 MG PO; +OLAN5 PO; +SEROQUEL25 MG PO
[2021-05-28 22:01] LABS: BASOPHILS ABSOLUTE AUTO 0.07 K/mm3 (0.00-0.23); BASOPHILS PERCENT AUTO 1 % (0-2); EOSINOPHILS ABSOLUTE AUTO 0.01 K/mm3 (0.00-0.68); EOSINOPHILS PERCENT AUTO 0 % (0-6); Hemoglobin 10.4 g/dL (11.5-16.0); IMMATURE GRAN ABSOLUTE AUTO 0.02 K/mm3 (0.00-0.10); IMMATURE GRAN PERCENT AUTO 0 % (0-1); LYMPHOCYTES ABSOLUTE AUTO 0.95 K/mm3 (0.84-5.20); LYMPHOCYTES PERCENT AUTO 11 % (21-46); MONOCYTES ABSOLUTE AUTO 0.67 K/mm3 (0.16-1.47); MONOCYTES PERCENT AUTO 8 % (4-13); Mean Corpuscular HGB 30.4 pg (26.0-34.0); Mean Corpuscular HGB Conc 32.5 g/dL (31.5-36.5); Mean Corpuscular Volume 94 fL (80-100); Mean Platelet Volume 8.7 fL (9.1-12.4); NEUTROPHILS ABSOLUTE AUTO 7.19 K/mm3 (1.96-9.15); NEUTROPHILS PERCENT AUTO 81 % (41-73); Platelet Count 629 K/mm3 (150-400); RDW Coefficient Variation 13.9 % (11.7-14.2); RDW Standard Deviation 47.2 fL (35.1-46.3); Red Blood Cell Count 3.42 M/mm3 (3.80-5.20); White Blood Cell Count 8.91 K/mm3 (4.00-11.30)
[2021-05-28 22:26] LABS: Alanine Aminotransfer (ALT/SGP 42 U/L (12-78); Albumin, Blood 3.8 g/dL (3.4-5.0); Alk Phos 153 U/L (50-136); Anion Gap 7 mmol/L (6-16); Aspartate Aminotrans (AST/SGOT 29 U/L (12-37); Bilirubin, Total 0.4 mg/dL (0.1-1.0); Blood Urea Nitrogen 20 mg/dL (8-24); Bun/Creatinine Ratio 19.4 (12.0-20.0); CO2, Blood 26 mmol/L (21-32); Calcium, Blood 9.6 mg/dL (8.5-10.1); Chloride, Blood 110 mmol/L (98-108); Creatinine, Blood 1.03 mg/dL (0.40-1.00); Ethanol (Alcohol), Blood, Med <3 mg/dL; Globulin, Blood 3.9 g/dL (2.2-4.0); Glomerular Filtration Rate 56 (60-); Glucose, Blood 96 mg/dL (70-99); Potassium, Blood 3.9 mmol/L (3.5-5.5); Salicylate <1.7 mg/dL (2.8-20.0); Sodium, Blood 143 mmol/L (136-145); Total Protein, Blood 7.7 g/dL (6.4-8.2)
[2021-05-28 22:31] LABS: Acetaminophen, Random <2.0 ug/mL (10.0-30.0)
[2021-05-28 23:53] LABS: Source, Urine Clean Catch
[2021-05-29 00:06] LABS: Bilirubin, Urine Neg (Neg); Blood, Urine 3+ (Neg); Glucose Qualitative, Urine Neg (Neg); Ketones, Urine 2+ (Neg); Leukocyte Esterase, Urine 3+ (Neg); Nitrite, Urine Neg (Neg); Protein, Urine 2+ (Neg); Urobilinogen, Urine NORM (Normal)
[2021-05-29 00:10] LABS: Appearance, Urine Hazy (Clear); Color, Urine Yellow (P-Yellow)
[2021-05-29 00:17] LABS: U Amphetamine Screen DETECTED; U Barbituate Screen Not Detected; U Benzodiazapine Screen Not Detected; U Buprenorphine Screen Not Detected; U Cannabinoids Screen Not Detected; U Cocaine Screen Not Detected; U Methadone Screen Not Detected; U Methamphetamine Screen DETECTED; U Opiates Screen Not Detected; U Oxycodone Screen Not Detected; U Phencyclidine Screen Not Detected; U Propoxyphene Screen Not Detected
[2021-05-29 00:26] LABS: Bacteria Many /hpf; Red Blood Cells, Urine 0-2 /hpf (0-2); Squamous Epithelial Cells Many /hpf (Few); Trichomonas Few /hpf
== END 2021-05-29 00:58 | disposition home or self-care (01) ==
LOC: ER 20:50
PROVIDERS: Physician Assistant
DX: F15.159 Other stimulant abuse with stimulant-induced psychotic disorder, unspecified (principal); F17.210 Nicotine dependence, cigarettes, uncomplicated; I25.2 Old myocardial infarction; Z79.899 Other long term (current) drug therapy; Z88.0 Allergy status to penicillin; Z88.1 Allergy status to other antibiotic agents; Z88.5 Allergy status to narcotic agent; Z88.8 Allergy status to other drugs, medicaments and biological substances
CPT/HCPCS: 36415; 80053; 81001; 81025; 85025; 87077; 87086; 87186; 93005; 93010; 99283-25; G0480